=== PATIENT | female | born 1990 | race Caucasian/White ===

== ENCOUNTER → 2017-01-07 | Outpatient (CLI) | payer BC ==
[~2017-01-07] MED LIST: AMOX875T PO; ASPEC325 PO; BUPR-79 PO; CEPH-571 PO; CLON1TAB3 PO; ETONMIS VAGRING; HYDR-5688 PO; LEVO175T PO; PRED20TA PO; SERT50TA PO; TRAM-10 PO; TRAZ100T29 PO
[2017-01-07 10:46] LABS: BASO % 0.2 %; BASO ABS # 0.02 K/uL (0-0.2); COMPLETE YES; EOS % 1.7 %; HEMATOCRIT 39.3 % (37-47); IG% 0.5 %; LYMPH % 26.3 %; LYMPH ABS # 2.91 K/uL (1.2-3.4); MEAN CELL VOLUME 87.1 fL (80-100); MEAN CORPUSCULAR HEMOGLOBIN 27.9 pg (25-34); MEAN CORPUSCULAR HGB CONC 32.1 g/dl (32-36); MEAN PLATELET VOLUME 10.4 fL (7.4-10.4); MONO % 5.2 %; NEUT % 66.1 %; PLATELET COUNT 227 K/uL (130-400); RED BLOOD COUNT 4.51 M/uL (4.2-5.4); WHITE BLOOD COUNT 11.05 K/uL (4.8-10.8)
[2017-01-07 10:49] LABS: PREG INTERNAL NEGATIVE QC NEG CLEAR BACKGROUND; PREG INTERNAL POSITIVE QC POS CONTROL LINE
== END | disposition home or self-care (01) ==
LOC: C.LAB1850 09:06
PROVIDERS: ATTEND Orthopaedic Surgery Orthopaedic Surgery of the Spine
DX: Z01.812 Encounter for preprocedural laboratory examination (principal)

== ENCOUNTER 2017-01-18 16:23 | Emergency (ER) | payer BC ==
[~2017-01-18] VITALS: Ht 167.6 cm; Wt 73.6 kg
[~2017-01-18 16:23] MED LIST changes: -AMOX875T PO; -ASPEC325 PO; -CEPH-571 PO; -HYDR-5688 PO; -PRED20TA PO
[2017-01-18 16:26] VITALS: TEMP 36.8; Ht 167.6 cm; Wt 73.6 kg
--- NOTE | 2017-01-18 16:49 | Medical Consult ---
Consultation Date of Consultation: January 18, 2017. 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 Has been treated for strep 12/30 with antibiotics and prednisone. This cleared the infection, she felt better for a few days, then started with sore throat again around 01/09. Strep negative at that point. She finished another course of prednisone and steroid yesterday and states she felt like her tonsils were swollen again. Seen at urgent care who referred to the ED for evaluation of possible LADLE OPERATOR. Patient denies reflux. She denies any alleviating or exacerbating factors. Denies any other associated symptoms. Does not smoke. Drinks wine rarely. Gets about 2-3 bouts of strep throat a year for the past 10 years. No history of LADLE OPERATOR in the past. Social History Smoking Status: Never Smoker Marital Status: in relationship Allergies Coded Allergies: Sulfa Drugs (Unverified Allergy, Unknown, UNKNOWN, 01/14/17) Review of Systems Eyes: No diplopia, No discharge, No eye pain, No problem reported, No redness, No worsening of vision ENT: + problem reported (sore throat) Respiratory: No cough, No dyspnea at rest, No dyspnea on exertion, No hemoptysis, No problem reported, No shortness of breath, No sputum, No wheezing Abdomen: No GI bleeding, No constipation, No diarrhea, No nausea, No pain, No problem reported, No vomiting Musculoskeletal: No calf pain, No joint pain, No muscle pain, No problem reported, No swelling Neurologic: No balance problems, No memory loss, No numbness/tingling, No paralysis, No problem reported, No vertigo, No weakness Physical Exam Date Time Temp Pulse Resp B/P Pulse Ox O2 Delivery O2 Flow Rate FiO2 01/18/17 16:26 36.8 104 20 110/78 100 Room Air PROCEDURE Fiberoptic laryngoscopy was performed. Hypopharyngeal exam normal. Epiglottis with some mild erythema. No edema. Arytenoids with moderate erythema. No vocal cord masses. Vocal cord mobility normal. No paresis or paralysis. Post cricoid space normal. General Appearance: WD/WN, no apparent distress Head: normocephalic, atraumatic Eyes: normal inspection, PERRL, EOMI ENT: + pertinent finding (Tonsils are 2+, no erythema, no exudate. No palatal edema. No uvular deviation. 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 - can consider prednisone taper - discussed consideration of tonsillectomy electively. - my business card was provided, patient can make appointment to schedule tonsillectomy
--- NOTE | 2017-01-18 16:54 | EMERGENCY ROOM VISIT NOTE ---
History Report prepared by Jasen: Mishel Talavera Under the Supervision of: Dr. Damián aHmpton M.D. First contact with patient: 16:36 Chief Complaint: SORETHROAT Stated Complaint: SORE THROAT - SENT BY URGENT CARE History of Present Illness The patient is a 26 year old female who presents to the Emergency Room with complaints of worsening sore throat beginning a few weeks prior to arrival. The patient was seen at Urgent Care and was referred to the ED for further treatment to see if this is a tonsillar abscess. The patient has been having symptoms twice a year for 10 years. She notes that she was on Prednisone twice, December 25 and January 09. She just finished her course yesterday. She denies any other symptoms at this time. 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 Review of Systems All systems have been listed, reviewed, and are negative other than those previously mentioned. Please see Additional Medical History Sheet. Past Medical & Surgical Medical Problems: (1) Hypothyroid Family History Hypertension Social History Smoking Status: Never Smoker Smokeless Tobacco Use: No Alcohol Use: occasionally Marital Status: in relationship Housing Status: lives with family Current/Historical Medications Scheduled Amoxicillin & Pot Clavulanate (Augmentin 875-125 mg), 875 MG PO BID Bupropion (Wellbutrin Sr), 150 MG PO BID Etonogestrel/Ethinyl Estradiol (Nuvaring), 1 EA VAGRING MONTHLY Levothyroxine Sodium (Synthroid), 175 MCG PO QAM Prednisone (Prednisone), 20 MG PO BID Sertraline (Zoloft), 50 MG PO QPM Trazodone Hcl (Trazodone), 200 MG PO HS Scheduled PRN Clonazepam (Klonopin), 1 MG PO DAILY PRN for PRN Hydrocodone/Acetaminophen 5MG/325MG (Alexander 5MG/325MG), 1-2 TABLETS PO Q4 PRN for Pain Tramadol (Ultram), 50 MG PO Q8H PRN for Pain Allergies Coded Allergies: Sulfa Drugs (Unverified Allergy, Unknown, UNKNOWN, 01/14/17) Physical Exam Vital Signs Date Time Temp Pulse Resp B/P Pulse Ox O2 Delivery O2 Flow Rate FiO2 01/18/17 17:11 112 20 114/69 100 01/18/17 16:50 99 Room Air 01/18/17 16:26 36.8 104 20 110/78 100 Room Air Physical Exam GENERAL: Patient awake, alert, oriented x 3. Patient follows commands. Patient does not appear toxic. Patient is adequately hydrated and well- nourished. SKIN: No erythema, pallor, cyanosis or rash HEENT: Normal head, pupils equal, reactive to light and accommodation. Ears normal. Throat has slight erythema and swelling with no definite abscess, no significant adenopathy. Neck: Without adenopathy, no neck vein distention. LUNGS: Clear to auscultation. No wheezes, no rales, no rhonchi. HEART: No murmurs. No gallops. No rubs NEUROLOGIC: Cranial nerves II-XII within normal limits. No gross motor sensory function deficits. Medical Decision & Procedures ED Course 1641: Consultation with Dr. Hogan. He does not think patient has a peritonsillar abscess. He recommends Augmentin and to have the patient be sent home. 1643: Past medical records reviewed. The patient was evaluated in room A4. A complete history and physical examination was performed. 1704: Upon reevaluation, the patient appeared to have improvement of her symptoms. I discussed today's findings with her. She verbalized agreement of the treatment plan. She was discharged home. Medical Decision Nurses notes reviewed. Medical history sheet reviewed. Differential diagnosis includes but is not limited to: Sore throat, viral pharyngitis, peritonsillar abscess. The patient was also evaluated by Dr. Hogan who performed a fiberoptic exam on her. The patient does not appear to have a peritonsillar abscess. He suggested the patient be placed on Augmentin and prednisone. The patient was recently on prednisone until 1 day ago. [place] Drug Monitoring Program Search Results: patient reviewed within database, no issues identified Impression Primary Impression: Acute pharyngitis Scribe Attestation The scribe's documentation has been prepared under my direction and personally reviewed by me in its entirety. I confirm that the note above accurately reflects all work, treatment, procedures, and medical decision making performed by me. Departure Information Dispostion Home / Self-Care Prescriptions Prednisone (Prednisone) 20 Mg Tab 20 MG PO BID for 5 Days, #10 TAB Prov: Damián Hampton M.D. 01/18/17 Hydrocodone/Acetaminophen 5MG/325MG (Alexander 5MG/325MG) Tab 1-2 TABLETS PO Q4 Y for Pain, #10 TAB PRN PAIN Prov: Damián Hampton M.D. 01/18/17 Amoxicillin & Pot Clavulanate (Augmentin 875-125 mg) 1 Tab Tab 875 MG PO BID, #20 TAB Prov: Damián Hampton M.D. 01/18/17 Referrals Juan Arce, D.OMarti (PCP) Forms HOME CARE DOCUMENTATION FORM, IMPORTANT VISIT INFORMATION Patient Instructions [facility], Sore Throat Additional Instructions 1 Augmentin twice a day for 10 days. 1-2 hydrocodone every 4 hours as needed for moderate to severe pain. Do not drive or operate machinery while taking hydrocodone. 1 prednisone twice a day for 5 days. Gargle with salt water. Drink extra fluids. Oral contraceptives may not be effective while on antibiotics.
[2017-01-18] MEDS ORDERED: HYDR-5688 PO (17:01)
[2017-01-18] MEDS ORDERED: AMOX875T PO (17:01)
[2017-01-18] MEDS ORDERED: PRED20TA PO (17:01)
[2017-01-18 17:11] VITALS: BP 114/69; PULSE 112; O2SAT 100
[2017-01-30] MEDS ORDERED: CEPH-571 PO (10:25)
[2017-01-30] MEDS ORDERED: HYDR-5688 PO (10:25)
[2017-01-30] MEDS ORDERED: ASPEC325 PO (10:25)
== END 2017-01-18 17:14 | disposition home or self-care (01) ==
LOC: C.EDB 16:24 → C.EDA 17:14
DX: J02.9 Acute pharyngitis, unspecified (principal); E03.9 Hypothyroidism, unspecified; Z82.49 Family history of ischemic heart disease and other diseases of the circulatory system

== ENCOUNTER → 2017-09-23 | Outpatient (CLI) | payer OTHER ==
[~2017-09-23] MED LIST changes: +ASPEC325 PO; -TRAM-10 PO
== END | disposition home or self-care (01) ==
LOC: C.LABSPEC 17:25
PROVIDERS: ATTEND Physician Assistant
DX: Z11.3 Encounter for screening for infections with a predominantly sexual mode of transmission (principal); Z11.8 Encounter for screening for other infectious and parasitic diseases

== ENCOUNTER → 2017-09-23 | Outpatient (CLI) | payer OTHER | END | disposition home or self-care (01) | LOC: C.PAPS 08:01 | PROVIDERS: ATTEND Physician Assistant | DX: Z12.4 Encounter for screening for malignant neoplasm of cervix (principal) ==

== ENCOUNTER 2017-11-17 16:15 | Emergency (ER) | payer OTHER ==
[~2017-11-17] VITALS: Ht 165.1 cm; Wt 70.0 kg
[2017-11-17 16:20] VITALS: Ht 165.1 cm; Wt 70.0 kg
[2017-11-17 17:00] VITALS: TEMP 37.1
[2017-11-17] MEDS ORDERED: RALTEGRAVIR POTASSIUM TAB 400 MG TAB PO STA (20:29)
[2017-11-17] MEDS ORDERED: CEFTRIAXONE SOD 350MG/ML 1 GM VIAL IM STA (20:29)
[2017-11-17] MEDS ORDERED: EMTRICITABINE/TENOFOVIR TAB PO STA (20:29)
[2017-11-17] MEDS ORDERED: METRONIDAZOLE 250 MG TAB PO STA (20:29)
[2017-11-17] MEDS ORDERED: AZITHROMYCIN 250 MG TAB PO STA (20:29)
[2017-11-17] MEDS ORDERED: LEVONORGESTREL (EMERGENCY OC) 1.5 MG TAB PO STA (20:29)
[2017-11-17] MEDS ORDERED: ONDANSETRON 4MG OD TAB PO STA (20:29)
[2017-11-17] MEDS ORDERED: DIPHTHERIA/TETANUS/PERTUSSIS 0.5 ML SYR/VIAL IM. ONE (20:30)
[2017-11-17 20:36] VITALS: BP 120/77; PULSE 79; O2SAT 99
[2017-11-17] MEDS ORDERED: HIV POST EXPOSURE PROPHYLAXIS KIT ONE (20:55)
[2017-11-17] MEDS ORDERED: HIV POST EXPOSURE PROPHYLAXIS KIT PO SCH (21:00)
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
[2017-11-17] MEDS ORDERED: TRVHP PO (21:28)
[2017-11-17] MEDS ORDERED: ONDA4TAB10 SL (21:28)
[2017-11-17] MEDS ORDERED: RALT400T PO (21:28)
[2017-11-17] MEDS ORDERED: METR-163 PO (21:28)
[2017-11-17] MEDS ORDERED: ONDANSETRON HOME PACK 4MG OD TAB ONE (21:32)
--- NOTE | 2017-11-20 13:53 | Pharmacy Progress Note ---
ED Pharmacist Progress Note Date of Service: Nov 20, 2017. Patient called stating she needed 1 dose of the Truvada and Isentress to get her through the night. The patient was seen in the ED a few days ago and stated her pharmacy has ordered the medication but it will not be ready until tomorrow. I spoke with one of my supervisors and we were able to provide one dose as to not interrupt clinically important therapy. The patient did come to retrieve the medication.
== END 2017-11-17 21:00 | disposition home or self-care (01) ==
LOC: C.EDB 16:17
DX: T76.21XA Adult sexual abuse, suspected, initial encounter (principal); S39.93XA Unspecified injury of pelvis, initial encounter; Z23 Encounter for immunization; E03.9 Hypothyroidism, unspecified; Z79.82 Long term (current) use of aspirin; Z79.3 Long term (current) use of hormonal contraceptives; Z91.011 Allergy to milk products